=== PATIENT | female | born 1995 | race Caucasian/White ===

== ENCOUNTER → 2021-12-26 | Outpatient (CLI) | payer BC, OTHER ==
[~2021-12-26] MED LIST: PHENERGAN 12.12.5 M1 PO; PRENATAL VITAM1 EAC8 PO; SUBUTEX 8 MG TAB8 MG PO; URSODIOL300 MG PO; Viscous lidocaine2% TOP; ZANTAC150 MG PO; ZOFRAN 4 MG TAB4 MG PO
== END ==
LOC: KOH-I 12:32
DX: J20.9 Acute bronchitis, unspecified (principal); R53.83 Other fatigue
CPT/HCPCS: 71046